=== PATIENT | male | born 1980 | race Caucasian/White ===

== ENCOUNTER 2020-07-19 13:12 | Emergency (ER) | payer SELFPAY ==
[~2020-07-19] VITALS: Ht 182.9 cm; Wt 63.9 kg
--- NOTE | 2020-07-19 14:31 | RAD ---
3 view study of the left wrist Clinical indications: Fall with left wrist pain FINDINGS: There is a nondisplaced transverse fracture of the waist of the scaphoid bone. Alignment is normal. No dislocation is seen. No lytic process is evident. IMPRESSION: Fracture of the scaphoid bone. Electronically signed by: Martin Andrade MD (07/19/2020 2:28 PM) [id number]
--- NOTE | 2020-07-19 14:34 | PHYS DOC ---
Past Medical History Past Medical History: Other Additional Past Medical Histor: SPNTANEOUS PNEUMO X3 LEFT SIDE, L ELBOW DISLOCATION, L WRIST FX Past Surgical History: Other Additional Past Surgical Histo: PNEUMO, ART BIPASS OF L ELBOW Smoking Status: Current Every Day Smoker Additional Information: VAPS, AND CIG Alcohol Use: Rarely General Adult EDM: Chief Complaint: WRIST PAIN HPI: HPI: Patient is a 39 year old male who had a FOOSH injury 3 weeks ago in [facility], patient was diagnosed with a scaphoid fracture. Patient was to have surgery but had some issues due to insurance status. Patient states he has increasing pain in the scaphoid radiating to the ulnar side of the wrist as well. Pain is worse with range of motion. Pain is throbbing in nature and mo derate in severity at rest and severe with range of motion. Review of Systems: Review of Systems: Constitutional: Denies fever or chills. [] Eyes: Denies change in visual acuity. [] HENT: Denies nasal congestion or sore throat. [] Respiratory: Denies cough or shortness of breath. [] Cardiovascular: Denies chest pain or edema. [] GI: Denies abdominal pain, nausea, vomiting, bloody stools or diarrhea. [] : Denies dysuria. [] Musculoskeletal: Denies back pain but has left wrist pain Integument: Denies rash. [] Neurologic: Denies headache, focal weakness or sensory changes. [] Endocrine: Denies polyuria or polydipsia. [] Lymphatic: Denies swollen glands. [] Psychiatric: Denies depression or anxiety. [] Heart Score: Risk Factors: Risk Factors: DM, Current or recent (<one month) smoker, HTN, HLP, family history of CAD, obesity. Risk Scores: Score 0 - 3: 2.5% MACE over next 6 weeks - Discharge Home Score 4 - 6: 20.3% MACE over next 6 weeks - Admit for Clinical Observation Score 7 - 10: 72.7% MACE over next 6 weeks - Early Invasive Strategies Allergies: Allergies: Allergies Coded Allergies Type Severity Reaction Last Updated Verified hydrocodone Allergy Intermediate 07/19/20 Yes tramadol Allergy Intermediate 07/19/20 Yes Physical Exam: PE: Constitutional: Well developed, well nourished, no acute distress, non-toxic appearance. [] HENT: Normocephalic, atraumatic, bilateral external ears normal, no trismus nose normal. [] Eyes: PERRLA, EOMI, conjunctiva normal, no discharge. [] Neck: Normal range of motion, no tenderness, supple, no stridor. [] Cardiovascular:Heart rate regular rhythm, peripheral pulses intact, cap refill brisk Lungs & Thorax: Bilateral breath sounds clear, no respiratory distress Abdomen: Nontender no distention Skin: Warm, dry, no erythema, no rash. [] Back: No tenderness, no CVA tenderness. [] Extremities: Mild swelling to left wrist with tenderness on the left snuffbox area neurovascular intact distally Neurologic: Alert and oriented X 3, normal motor function, normal sensory function, no focal deficits noted. [] Psychologic: Affect normal, judgement normal, mood normal. [] Current Patient Data: Vital Signs: Vital Signs Date Time Temp Pulse Resp B/P (MAP) Pulse Ox O2 Delivery O2 Flow Rate FiO2 07/19/20 13:30 96.8 72 14 104/66 (79) 97 Room Air 96.8 EKG: EKG: [] Radiology/Procedures: Radiology/Procedures: [][facility] [address] [place] [address] IMAGING REPORT Signed PATIENT: HANG DUBOSE ACCOUNT: [id number] : 1980 LOCATION: ER AGE: 39 SEX: M EXAM STATUS: REG ER ORD. PHYSICIAN: NENA LAMAS MD REASON: fall PROCEDURE: WRIST 3V LEFT 3 view study of the left wrist Clinical indications: Fall with left wrist pain FINDINGS: There is a nondisplaced transverse fracture of the waist of the scaphoid bone. Alignment is normal. No dislocation is seen. No lytic process is evident. IMPRESSION: Fracture of the scaphoid bone. Electronically signed by: Sacha Andrade MD (07/19/2020 2:28 PM) [id number] DICTATED and SIGNED BY: SACHA ANDRADE MD DATE: 07/19/20 1428 Ortho-Glass left thumb spica applied by tech, examined by me after application, neurovascular intact, cap refill less than 2 seconds. Course & Med Decision Making: Course & Med Decision Making Pertinent Labs and Imaging studies reviewed. (See chart for details) [] 39-year-old male with a left scaphoid fracture that happened about a month ago. A thumb spica has been ordered. Patient will need to follow-up with orthopedist as an outpatient. Case management/social work will be consulted to help facilitate this. Kamla Disclaimer: Dragalyssa Disclaimer: This electronic medical record was generated, in whole or in part, using a voice recognition dictation system. Departure Departure Impression: Primary Impression: Fracture of scaphoid of left wrist Disposition: HOME, SELF-CARE Condition: STABLE Referrals: NO PCP (PCP) DIOGENES REEVES II, MD 2-3 days Patient Instructions: Cast or Splint Care, Scaphoid Fracture, Wrist Additional Instructions: EMERGENCY DEPARTMENT GENERAL DISCHARGE INSTRUCTIONS THANK YOU for coming to [facility] Emergency Department (ED) today and trusting us with your care. We trust that you had a positive experience in our Emergency Department. If you wish to speak to the department Management you can contact the biology department chair at . YOUR FOLLOW UP INSTRUCTIONS ARE FOLLOWS: Do you have a private doctor? If you do not have a private doctor, please ask for a resource list of physicians or clinics that may be able to assist you with follow up care. The Emergency Physician has interpreted your x-rays. The X-ray specialist will also review them. If there is a change in the findings you will be notified in 48 hours when at all possible. A lab test or lab culture may have been done, your results will be reviewed and you will be notified if you need a change in treatment. ADDITIONAL INSTRUCTIONS AND INFORMATION Your care today has been supervised by a physician who is specially trained in emergency care. Many problems require more than one evaluation for a complete diagnosis and treatment. We recommend that you schedule your follow up appointment as recommended to ensure complete treatment of your illness or injury. If you are unable to obtain follow up care and continue to have a problem, or if your condition worsens we recommend that you return to the ED. We are not able to safely determine your condition over the phone nor are we able to give sound medical advice over the phone. For these safety reasons, if you call for medical advice we will ask you to come to the ED for further evaluation If you have any questions regarding these discharge instructions please call the ED at . SAFETY INFORMATION In the interest of safety, wellness, and injury prevention; we encourage you to wear your seatbelt, if you smoke; quit smoking, and we encourage your family to use protective helmet for bicycling and other sporting events that present an increased risk for head injury. IF YOUR SYMPTOMS WORSEN OR NEW SYMPTOMS DEVELOP, OR YOU HAVE CONCERNS ABOUT YOUR CONDITION; OR IF YOUR CONDITION WORSENS WHILE YOU ARE WAITING FOR YOUR FOLLOW UP APPOINTMENT; EITHER CONTACT YOUR PRIMARY CARE DOCTOR, THE PHYSICIAN WHOSE NAME AND NUMBER YOU WERE GIVEN, OR RETURN TO THE ED IMMEDIATELY. Scripts Acetaminophen With Codeine (ACETAMINOPHEN-COD #3 TABLET) 1 Each Tablet 1 TAB PO PRN Q6HRS PRN for PAIN, #12 TAB Prov: NENA LAMAS MD 07/19/20 Justicifation of Admission Dx: Justifications for Admission: Justification of Admission Dx: N/A NENA LAMAS MD Jul 19, 2020 14:34
[2020-07-19] MEDS ORDERED: ACET1TAB33 PO (15:11)
[2020-07-19 15:57] VITALS: BP 119/63
== END 2020-07-19 16:53 | disposition home or self-care (01) ==
LOC: ER 13:12
DX: S62.002A Unspecified fracture of navicular [scaphoid] bone of left wrist, initial encounter for closed fracture (principal); R60.0 Localized edema; F17.200 Nicotine dependence, unspecified, uncomplicated; Z98.890 Other specified postprocedural states; Z88.5 Allergy status to narcotic agent; Z88.8 Allergy status to other drugs, medicaments and biological substances; X58.XXXA Exposure to other specified factors, initial encounter; Y93.89 Activity, other specified; Y92.89 Other specified places as the place of occurrence of the external cause; Y99.8 Other external cause status
CPT/HCPCS: 29125; 73110; 99283

== ENCOUNTER 2020-07-25 04:59 | Emergency (ER) | payer SELFPAY ==
[~2020-07-25] VITALS: Ht 182.9 cm; Wt 64.1 kg
[~2020-07-25 04:59] MED LIST: ACET1TAB33 PO
--- NOTE | 2020-07-25 05:54 | PHYS DOC ---
Past Medical History Past Medical History: Kidney Stone, Other Additional Past Medical Histor: SPONTANEOUS PNEUMO X3 LEFT SIDE from BLEBs, L ELBOW DISLOCATION, L WRIST FX (JANETTE BUNDY DO) Past Surgical History: Other Additional Past Surgical Histo: PNEUMO, ART BIPASS OF L ELBOW (JANETTE BUNDY DO) Smoking Status: Current Every Day Smoker Alcohol Use: None Drug Use: None (JANETTE BUNDY DO) General Adult EDM: Chief Complaint: ABDOMINAL PAIN HPI: HPI: Patient is a 39 year old M who presents with LLQ pain that radiates to the groin that began yesterday after a "bowel movement". He states the pain is sharp, 10/10 and comes and goes. He states that nothing improves or worsens the pain. He denies dysuria and blood in his urine. He states that he is nauseous, but denies vomiting. He denies swelling in his testicles and penile discharge. Denies trauma. Denies fever/chills. (JANETTE BUNDY DO) Review of Systems: Review of Systems: Constitutional: Denies fever or chills Eyes: Denies redness or eye pain HENT: Denies nasal congestion or sore throat Respiratory: Denies cough or shortness of breath Cardiovascular: Denies chest pain or palpitations GI: Reports abdominal pain and nausea and vomiting. : Denies dysuria or hematuria; reports testicular pain Musculoskeletal: Denies back pain or joint pain Integument: Denies rash or skin lesions Neurologic: Denies headache, focal weakness or sensory changes Complete systems were reviewed and found to be within normal limits, except as documented in this note. (JANETTE BUNDY DO) Current Medications: Current Medications Medications (Trade) Dose Ordered Sig/Ria Start Time Stop Time Status Last Admin Dose Admin Ketorolac Tromethamine (Toradol 15mg Vial) 15 mg 1X ONCE 07/25/20 06:00 07/25/20 06:01 Metoclopramide HCl (Reglan Vial) 10 mg 1X ONCE 07/25/20 06:00 07/25/20 06:01 Sodium Chloride 1,000 ml @ 1,000 mls/hr 1X ONCE 07/25/20 06:00 07/25/20 06:59 (JANETTE BUNDY DO) Allergies: Allergies: Allergies Coded Allergies Type Severity Reaction Last Updated Verified hydrocodone Allergy Intermediate 07/19/20 Yes tramadol Allergy Intermediate 07/19/20 Yes (JANETTE BUNDY DO) Physical Exam: PE: Constitutional: Well developed, well nourished. HENT: Normocephalic, atraumatic Eyes: Conjunctiva normal, no discharge Neck: Normal range of motion, no tenderness, supple Lungs & Thorax: No respiratory distress, equal chest rise and fall Abdomen: Soft, mildly tender to palpation in LLQ and groin. : External genitalia normal, cremasteric reflex normal, no testicular swelling or pain on palpation, no penile discharge noted. Skin: Warm, dry, no erythema, no rash Back: No tenderness, no CVA tenderness Extremities: ROM intact, no edema Neurologic: Alert and oriented X 3, normal motor function, normal sensory function, no focal deficits noted Psychologic: Affect normal, judgment normal (JANETTE BUNDY DO) Current Patient Data: Vital Signs: Vital Signs Date Time Temp Pulse Resp B/P (MAP) Pulse Ox O2 Delivery O2 Flow Rate FiO2 07/25/20 05:26 97.4 84 22 127/80 (96) 100 Room Air 97.4 (JANETTE BUNDY DO) Labs: Laboratory Tests Test 07/25/20 05:03 07/25/20 05:15 Urine Collection Type Unknown Urine Color Yellow Urine Clarity Clear Urine pH 5.5 Urine Specific [place] 1.025 Urine Protein Negative mg/dL Urine Glucose (UA) Negative mg/dL Urine Ketones (Stick) Negative mg/dL Urine Blood Large Urine Nitrite Negative Urine Bilirubin Negative Urine Urobilinogen Dipstick 0.2 mg/dL Urine Leukocyte Esterase Negative Urine RBC 11-20 /HPF Urine WBC 1-4 /HPF Urine Squamous Epithelial Cells Few /LPF Urine Bacteria 0 /HPF Urine Mucus Marked /LPF White Blood Count 12.9 x10^3/uL Red Blood Count 5.17 x10^6/uL Hemoglobin 16.3 g/dL Hematocrit 47.7 % Mean Corpuscular Volume 92 fL Mean Corpuscular Hemoglobin 32 pg Mean Corpuscular Hemoglobin Concent 34 g/dL Red Cell Distribution Width 14.2 % Platelet Count 209 x10^3/uL Neutrophils (%) (Auto) 41 % Lymphocytes (%) (Auto) 47 % Monocytes (%) (Auto) 10 % Eosinophils (%) (Auto) 2 % Basophils (%) (Auto) 1 % Neutrophils # (Auto) 5.2 x10^3/uL Lymphocytes # (Auto) 6.1 x10^3/uL Monocytes # (Auto) 1.2 x10^3/uL Eosinophils # (Auto) 0.2 x10^3/uL Basophils # (Auto) 0.1 x10^3/uL Sodium Level 142 mmol/L Potassium Level 3.6 mmol/L Chloride Level 106 mmol/L Carbon Dioxide Level 27 mmol/L Anion Gap 9 Blood Urea Nitrogen 16 mg/dL Creatinine 1.1 mg/dL Estimated GFR (Cockcroft-Gault) 74.1 BUN/Creatinine Ratio 15 Glucose Level 100 mg/dL Calcium Level 9.5 mg/dL Magnesium Level 2.0 mg/dL Total Bilirubin 0.4 mg/dL Aspartate Amino Transf (AST/SGOT) 18 U/L Alanine Aminotransferase (ALT/SGPT) 26 U/L Alkaline Phosphatase 105 U/L Total Protein 7.4 g/dL Albumin 4.1 g/dL Albumin/Globulin Ratio 1.2 Lipase 224 U/L Current Medications Medications (Trade) Dose Ordered Sig/Ria Route PRN Reason Start Time Stop Time Status Last Admin Dose Admin Sodium Chloride 1,000 ml @ 1,000 mls/hr 1X ONCE IV 07/25/20 06:00 07/25/20 06:59 07/25/20 05:52 Ketorolac Tromethamine (Toradol 15mg Vial) 15 mg 1X ONCE IVP 07/25/20 06:00 07/25/20 06:02 DC 07/25/20 05:53 Metoclopramide HCl (Reglan Vial) 10 mg 1X ONCE IVP 07/25/20 06:00 07/25/20 06:02 DC 07/25/20 05:52 Vital Signs: Vital Signs Date Time Temp Pulse Resp B/P (MAP) Pulse Ox O2 Delivery O2 Flow Rate FiO2 07/25/20 05:26 97.4 84 22 127/80 (96) 100 Room Air 97.4 (NENA LAMAS MD) EKG: EKG: [] (JANETTE BUNDY DO) Radiology/Procedures: Radiology/Procedures: [] (JANETTE BUNDY DO) Radiology/Procedures: [facility] [address] [place] [address] IMAGING REPORT Signed PATIENT: HANG DUBOSE ACCOUNT: [id number] : 1980 LOCATION: ER AGE: 39 SEX: M EXAM STATUS: REG ER ORD. PHYSICIAN: JANETTE BUNDY DO REASON: left flank pain eval for ureteral calculi PROCEDURE: CT ABDOMEN PELVIS WO CONTRAST Examination: CT of the abdomen pelvis without contrast HISTORY: History of left flank pain COMPARISON: None available Technique: Axial CT images of the abdomen pelvis were performed without contrast. Coronal and sagittal reformats are performed Exposure: One or more of the following individualized dose reduction techniques were utilized for this examination: 1. Automated exposure control 2. Adjustment of the mA and/or kV according to patient size 3. Use of iterative reconstruction technique Findings: The bibasilar lungs are clear. No evidence of free air identified in the abdomen. The evaluation of the solid organs is limited due to lack of IV contrast. The evaluation of bowel is limited due to lack of oral contrast. The visualized noncontrasted liver, spleen, adrenals grossly appears unremarkable. The gallbladder is mildly distended. The stomach is mildly distended with visualized pancreas grossly appears unremarkable. The small bowel is nondilated. The appendix is normal. Mild left-sided hydronephrosis and hydroureter identified with 4 mm calculus identified in the left uterovesical junction. Urinary bladder is mildly distended. No evidence of lytic bony destructive lesion. IMPRESSION: 1. 4 mm calculus identified at the left ureterovesical junction causing mild left-sided hydronephrosis and hydroureter. Electronically signed by: Aris Dixon MD (07/25/2020 6:16 AM) [id number] DICTATED and SIGNED BY: ARIS DIXON MD DATE: 07/25/20 0616 (NENA LAMAS MD) Course & Med Decision Making: Course & Med Decision Making Pertinent Labs and Imaging studies reviewed. (See chart for details) Patient presents with report of left lower quadrant abdominal pain with radiation to left groin/testicle. Patient with associated nausea and vomiting. Reports history of kidney stones. External genitalia normal without testicular swelling or pain on palpation. Labs obtained and pending. CT abdomen/pelvis also pending. IV fluid hydration and symptomatic treatment provided. Sign out given to Dr. Lamas for further evaluation and final disposition. Discussed current findings and plan with patient and fianc, who acknowledge understanding and agreement. (JANETTE BUNDY DO) Course & Med Decision Making 39-year-old male presents with left flank pain. Patient signed out to me by Dr. Bundy. Patient with a 4 mm distal left ureteral stone. On my reassessment at 6:30 AM patient is resting comfortably denies pain. Patient no respiratory distress. Patient stable for discharge, return precautions given. (NENA LAMAS MD) Dragon Disclaimer: Dragon Disclaimer: This electronic medical record was generated, in whole or in part, using a voice recognition dictation system. (JANETTE BUNDY DO) Departure Departure Impression: Primary Impression: Left ureteral stone Additional Impression: Abdominal pain Qualified Codes: R10.32 - Left lower quadrant pain Disposition: HOME, SELF-CARE Condition: STABLE Referrals: NO PCP (PCP) urology Patient Instructions: Kidney Stones Additional Instructions: EMERGENCY DEPARTMENT GENERAL DISCHARGE INSTRUCTIONS THANK YOU for coming to [facility] Emergency Department (ED) today and trusting us with your care. We trust that you had a positive experience in our Emergency Department. If you wish to speak to the department Management you can contact the emergency department technician at . YOUR FOLLOW UP INSTRUCTIONS ARE FOLLOWS: Do you have a private doctor? If you do not have a private doctor, please ask for a resource list of physicians or clinics that may be able to assist you with follow up care. The Emergency Physician has interpreted your x-rays. The X-ray specialist will also review them. If there is a change in the findings you will be notified in 48 hours when at all possible. A lab test or lab culture may have been done, your results will be reviewed and you will be notified if you need a change in treatment. ADDITIONAL INSTRUCTIONS AND INFORMATION Your care today has been supervised by a physician who is specially trained in emergency care. Many problems require more than one evaluation for a complete diagnosis a nd treatment. We recommend that you schedule your follow up appointment as recommended to ensure complete treatment of your illness or injury. If you are unable to obtain follow up care and continue to have a problem, or if your condition worsens we recommend that you return to the ED. We are not able to safely determine your condition over the phone nor are we able to give sound medical advice over the phone. For these safety reasons, if you call for medical advice we will ask you to come to the ED for further evaluation If you have any questions regarding these discharge instructions please call the ED at . SAFETY INFORMATION In the interest of safety, wellness, and injury prevention; we encourage you to wear your seatbelt, if you smoke; quit smoking, and we encourage your family to use protective helmet for bicycling and other sporting events that present an increased risk for head injury. IF YOUR SYMPTOMS WORSEN OR NEW SYMPTOMS DEVELOP, OR YOU HAVE CONCERNS ABOUT YOUR CONDITION; OR IF YOUR CONDITION WORSENS WHILE YOU ARE WAITING FOR YOUR FOLLOW UP APPOINTMENT; EITHER CONTACT YOUR PRIMARY CARE DOCTOR, THE PHYSICIAN WHOSE NAME AND NUMBER YOU WERE GIVEN, OR RETURN TO THE ED IMMEDIATELY. Scripts Tamsulosin Hcl (FLOMAX) 0.4 Mg Cap.er.24h 0.4 MG PO DAILY for 7 Days, #7 TAB Prov: NENA LAMAS MD 07/25/20 Ondansetron Hcl (ZOFRAN) 4 Mg Tablet 1 TAB PO Q6HRS PRN for NAUSEA, #12 TAB Prov: NENA LAMAS MD 07/25/20 Oxycodone/Apap 5-325 (PERCOCET 5-325 MG TABLET ) 1 Each Tablet 1-2 EACH PO Q6-8HRS PRN for SEVERE PAIN 7-10, #12 TAB pain Prov: NENA LAMAS MD 07/25/20 Ibuprofen (IBUPROFEN) 600 Mg Tablet 600 MG PO Q8HRS PRN for PAIN, #20 TAB take with food or milk Prov: NENA LAMAS MD 07/25/20 Justicifation of Admission Dx: Justifications for Admission: Justification of Admission Dx: N/A (JANETTE BUNDY DO) Justification of Admission Dx: N/A (NENA LAMAS MD) JANETTE BUNDY DO Jul 25, 2020 05:54 NENA LAMAS MD Jul 25, 2020 06:34
[2020-07-25 05:56] LABS: BASO # 0.1 x10^3/uL (0.0-0.2); BASO % 1 % (0-3); EOS # 0.2 x10^3/uL (0.0-0.7); EOS % 2 % (0-3); HEMATOCRIT 47.7 % (39.0-53.0); HEMOGLOBIN 16.3 g/dL (13.0-17.5); LYMPH # 6.1 x10^3/uL (1.0-4.8); LYMPH % 47 % (24-48); MEAN CORPUSCULAR HEMOGLOBIN 32 pg (25-35); MEAN CORPUSCULAR HGB CONC 34 g/dL (31-37); MEAN CORPUSCULAR VOLUME 92 fL (79-100); MONO # 1.2 x10^3/uL (0.0-1.1); MONO % 10 % (0-9); NEUT # 5.2 x10^3/uL (1.8-7.7); NEUT % 41 % (31-73); PLATELET COUNT 209 x10^3/uL (140-400); RED BLOOD COUNT 5.17 x10^6/uL (4.30-5.70); RED CELL DISTRIBUTION WIDTH 14.2 % (11.5-14.5); WHITE BLOOD COUNT 12.9 x10^3/uL (4.0-11.0)
[2020-07-25 05:58] LABS: BILIRUBIN,URINE NEGATIVE (NEG); CLARITY,URINE CLEAR; COLOR,URINE YELLOW; NITRITE,URINE NEGATIVE (NEG); PH,URINE 5.5 (<5.0-8.0); PROTEIN,URINE NEGATIVE (NEG-TRACE); UROBILINOGEN,URINE 0.2 mg/dL (0.2 mg/dL)
[2020-07-25 06:00] VITALS: BP 112/72
[2020-07-25] MEDS ORDERED: METOCLOPRAMIDE HCL 10 MG/2 ML VIAL. IVP ONE (06:00)
[2020-07-25] MEDS ORDERED: KETOROLAC 15 MG/ML VIAL. IVP ONE (06:00)
[2020-07-25] MEDS ORDERED: IV NORMAL SALINE 1000ML BAG 1,000 ML IV ONE (06:00)
[2020-07-25 06:07] LABS: CALCIUM 9.5 mg/dL (8.5-10.1); CREATININE 1.1 mg/dL (0.7-1.3); GFR 74.1; POTASSIUM 3.6 mmol/L (3.5-5.1)
[2020-07-25 06:09] LABS: BACTERIA,URINE 0 /HPF (0-FEW); SQUAMOUS EPITHELIAL CELL,UR FEW /LPF
[2020-07-25 06:12] LABS: ALBUMIN 4.1 g/dL (3.4-5.0); ALBUMIN/GLOBULIN RATIO 1.2 (1.0-1.7); TOTAL BILIRUBIN 0.4 mg/dL (0.2-1.0); TOTAL PROTEIN 7.4 g/dL (6.4-8.2)
--- NOTE | 2020-07-25 06:19 | RAD ---
Examination: CT of the abdomen pelvis without contrast HISTORY: History of left flank pain COMPARISON: None available Technique: Axial CT images of the abdomen pelvis were performed without contrast. Coronal and sagittal reformats are performed Exposure: One or more of the following individualized dose reduction techniques were utilized for this examination: 1. Automated exposure control 2. Adjustment of the mA and/or kV according to patient size 3. Use of iterative reconstruction technique Findings: The bibasilar lungs are clear. No evidence of free air identified in the abdomen. The evaluation of the solid organs is limited due to lack of IV contrast. The evaluation of bowel is limited due to lack of oral contrast. The visualized noncontrasted liver, spleen, adrenals grossly appears unremarkable. The gallbladder is mildly distended. The stomach is mildly distended with visualized pancreas grossly appears unremarkable. The small bowel is nondilated. The appendix is normal. Mild left-sided hydronephrosis and hydroureter identified with 4 mm calculus identified in the left uterovesical junction. Urinary bladder is mildly distended. No evidence of lytic bony destructive lesion. IMPRESSION: 1. 4 mm calculus identified at the left ureterovesical junction causing mild left-sided hydronephrosis and hydroureter. Electronically signed by: Aris Dixon MD (07/25/2020 6:16 AM) [id number]
[2020-07-25] MEDS ORDERED: TAMS0.4C97 PO (06:34)
[2020-07-25] MEDS ORDERED: OXYC1TAB15 PO (06:34)
[2020-07-25] MEDS ORDERED: IBUP-1007 PO (06:34)
[2020-07-25] MEDS ORDERED: ONDA4TAB7 PO (06:34)
== END 2020-07-25 06:52 | disposition home or self-care (01) ==
LOC: ER 04:59
DX: N13.2 Hydronephrosis with renal and ureteral calculous obstruction (principal); R10.32 Left lower quadrant pain; R11.2 Nausea with vomiting, unspecified; N50.819 Testicular pain, unspecified; F17.200 Nicotine dependence, unspecified, uncomplicated; Z87.442 Personal history of urinary calculi; Z98.890 Other specified postprocedural states; Z88.5 Allergy status to narcotic agent; Z88.8 Allergy status to other drugs, medicaments and biological substances
CPT/HCPCS: 36415; 74176; 80053; 81001; 83690; 83735; 85025; 96361; 96374; 96375; 99284; J1885; J2765; J7030

== ENCOUNTER 2020-07-30 13:52 | Emergency (ER) | payer SELFPAY ==
[~2020-07-30] VITALS: Ht 182.9 cm; Wt 65.0 kg
[~2020-07-30 13:52] MED LIST changes: +IBUP-1007 PO; +ONDA4TAB7 PO; +OXYC1TAB15 PO; +TAMS0.4C97 PO
[2020-07-30] MEDS ORDERED: ONDANSETRON ODT 4 MG TAB.RAPDIS. PO ONE (14:45)
[2020-07-30] MEDS ORDERED: HYDROcodone/APAP 5/325MG 1 TAB TABLET PO ONE (14:45)
--- NOTE | 2020-07-30 14:46 | PHYS DOC ---
Past Medical History Past Medical History: Kidney Stone, Other Additional Past Medical Histor: SPONTANEOUS PNEUMO X3 LEFT SIDE from BLEBs, L ELBOW DISLOCATION, L WRIST FX Past Surgical History: Other Additional Past Surgical Histo: PNEUMO, ART BIPASS OF L ELBOW Smoking Status: Current Every Day Smoker Alcohol Use: None Drug Use: None General Adult EDM: Chief Complaint: FLANK PAIN HPI: HPI: Patient is a 39-year-old male who presents with chief complaint of left flank and left lower quadrant abdominal pain. Patient states 5 days ago he was diagnosed with kidney stone on the left. He does note some nausea without vomiting today. He states he has run out of his home oxycodone. States he does not think that he has passed the stone. States that his pain had improved after leaving the emergency department on his initial visit but it returned today. States it is difficult to find a position of comfort. Denies testicle pain. Does note some slight burning with urination. Denies any obvious hematuria. Denies syncope. Has not followed up with a urologist. No other complaints. Review of Systems: Review of Systems: Constitutional: Denies fever or chills. [] Eyes: Denies change in visual acuity. [] HENT: Denies nasal congestion or sore throat. [] Respiratory: Denies cough or shortness of breath. [] Cardiovascular: Denies chest pain or edema. [] GI: Positive for flank pain : Positive for dysuria Musculoskeletal: Denies back pain or joint pain. [] Integument: Denies rash. [] Neurologic: Denies headache, focal weakness or sensory changes. [] Endocrine: Denies polyuria or polydipsia. [] Lymphatic: Denies swollen glands. [] Psychiatric: Denies depression or anxiety. [] Heart Score: Risk Factors: Risk Factors: DM, Current or recent (<one month) smoker, HTN, HLP, family history of CAD, obesity. Risk Scores: Score 0 - 3: 2.5% MACE over next 6 weeks - Discharge Home Score 4 - 6: 20.3% MACE over next 6 weeks - Admit for Clinical Observation Score 7 - 10: 72.7% MACE over next 6 weeks - Early Invasive Strategies Current Medications: Current Medications Medications (Trade) Dose Ordered Sig/Ria Start Time Stop Time Status Last Admin Dose Admin Acetaminophen/ Hydrocodone Bitart (Lortab 5/325) 2 tab 1X ONCE 07/30/20 14:45 07/30/20 14:46 Ondansetron HCl (Zofran Odt) 4 mg 1X ONCE 07/30/20 14:45 07/30/20 14:46 UNV Allergies: Allergies: Allergies Coded Allergies Type Severity Reaction Last Updated Verified hydrocodone Allergy Intermediate 07/19/20 Yes tramadol Allergy Intermediate 07/19/20 Yes Physical Exam: PE: Constitutional: Well developed, well nourished, no acute distress, non-toxic appearance. Patient appears comfortable. [] HENT: Normocephalic, atraumatic, bilateral external ears normal, oropharynx moist, no oral exudates, nose normal. [] Eyes: PERRLA, EOMI, conjunctiva normal, no discharge. [] Neck: Normal range of motion, no tenderness, supple, no stridor. [] Cardiovascular:Heart rate regular rhythm, no murmur [] Lungs & Thorax: Bilateral breath sounds clear to auscultation [] Abdomen: soft, nontender, nonacute abdomen. No involuntary guarding or rigidity noted. No acute peritonitis. ; circumcised. No testicular pain or tenderness to palpation. No overlying skin changes or masses noted. Skin: Warm, dry, no erythema, no rash. [] Back: No tenderness, no CVA tenderness. [] Extremities: No tenderness, no cyanosis, no clubbing, ROM intact, no edema. [] Neurologic: Alert and oriented X 3, normal motor function, normal sensory function, no focal deficits noted. [] Psychologic: Affect normal, judgement normal, mood normal. [] Current Patient Data: Labs: Laboratory Tests Test 07/30/20 14:39 07/30/20 15:11 Urine Collection Type Unknown Urine Color Dk yellow Urine Clarity Clear Urine pH 5.5 Urine Specific [place] 1.020 Urine Protein Negative mg/dL Urine Glucose (UA) Negative mg/dL Urine Ketones (Stick) Trace mg/dL Urine Blood Trace Urine Nitrite Negative Urine Bilirubin Small Urine Urobilinogen Dipstick 1.0 mg/dL Urine Leukocyte Esterase Trace Urine RBC 6-10 /HPF Urine WBC Occ /HPF Urine Squamous Epithelial Cells Few /LPF Urine Bacteria 0 /HPF Urine Mucus Marked /LPF White Blood Count 15.6 x10^3/uL Red Blood Count 4.97 x10^6/uL Hemoglobin 15.5 g/dL Hematocrit 45.9 % Mean Corpuscular Volume 92 fL Mean Corpuscular Hemoglobin 31 pg Mean Corpuscular Hemoglobin Concent 34 g/dL Red Cell Distribution Width 14.0 % Platelet Count 197 x10^3/uL Neutrophils (%) (Auto) 72 % Lymphocytes (%) (Auto) 17 % Monocytes (%) (Auto) 10 % Eosinophils (%) (Auto) 1 % Basophils (%) (Auto) 1 % Neutrophils # (Auto) 11.2 x10^3/uL Lymphocytes # (Auto) 2.6 x10^3/uL Monocytes # (Auto) 1.6 x10^3/uL Eosinophils # (Auto) 0.1 x10^3/uL Basophils # (Auto) 0.1 x10^3/uL Sodium Level 139 mmol/L Potassium Level 3.8 mmol/L Chloride Level 106 mmol/L Carbon Dioxide Level 25 mmol/L Anion Gap 8 Blood Urea Nitrogen 16 mg/dL Creatinine 1.2 mg/dL Estimated GFR (Cockcroft-Gault) 67.1 Glucose Level 113 mg/dL Calcium Level 9.4 mg/dL Current Medications Medications (Trade) Dose Ordered Sig/Ria Route PRN Reason Start Time Stop Time Status Last Admin Dose Admin Acetaminophen/ Hydrocodone Bitart (Lortab 5/325) 2 tab 1X ONCE PO 07/30/20 14:45 07/30/20 14:46 DC 07/30/20 15:18 Ondansetron HCl (Zofran Odt) 4 mg 1X ONCE PO 07/30/20 14:45 07/30/20 14:46 DC 07/30/20 15:17 Vital Signs: Vital Signs Date Time Temp Pulse Resp B/P (MAP) Pulse Ox O2 Delivery O2 Flow Rate FiO2 07/30/20 15:18 18 99 Room Air 07/30/20 14:45 98.2 88 18 106/59 (75) 100 Room Air 98.2 EKG: EKG: [] Radiology/Procedures: Radiology/Procedures: [][facility] [address] [place], [place] [id number] IMAGING REPORT Signed PATIENT: HANG DUBOSE ACCOUNT: [id number] : 1980 LOCATION: ER AGE: 39 SEX: M EXAM STATUS: PRE ER ORD. PHYSICIAN: WILBERTO MCKENZIE DO REASON: L flank pain PROCEDURE: CT ABDOMEN PELVIS WO CONTRAST CT abdomen and pelvis without contrast. HISTORY: Left flank pain CT scan the abdomen pelvis was done without contrast. Lung bases are clear. There is no effusion. A liver lesion is not identified. Spleen and adrenal glands are normal. There is no definite pancreatic abnormality. There is a calcification in the gallbladder, gallstones possible. There is no mass or hydronephrosis or calculus in the right kidney. There is hydronephrosis of the left kidney and left ureter. There is a 3 mm calculus at the left ureterovesical junction. Bladder is unremarkable. Bowel pattern is normal. Appendix is normal. There is no adenopathy. IMPRESSION: 1. 3 mm calculus at the left ureterovesical junction with left hydronephrosis and hydroureter. 2. Possible gallstone. PQRS Compliance Statement: One or more of the following individualized dose reduction techniques were utilized for this examination: 1. Automated exposure control 2. Adjustment of the mA and/or kV according to patient size 3. Use of iterative reconstruction technique Electronically signed by: Travis Seals MD (07/30/2020 3:15 PM) [id number] DICTATED and SIGNED BY: TRAVIS SEALS MD DATE: 07/30/20 1515 Course & Med Decision Making: Course & Med Decision Making Pertinent Labs and Imaging studies reviewed. (See chart for details) [] Patient is a comfortable appearing 39-year-old male who presents with chief complaint of left flank pain. Per chart review 5 days ago he was diagnosed with a left-sided 4 mm kidney stone. Today's imaging reveals a retained ureteral stone. Mild hydronephrosis. Kidney function normal. Urine without evidence of infection. Patient's pain does appear well controlled in the emergency department. I do feel he is still appropriate for outpatient management. Based on the size of the stone the patient will most likely pass this spontaneously. he Was given referral to a urologist to follow-up with. He was instructed to follow-up with his primary care physician in the next 2 to 3 days. Return precautions discussed and understood. He was encouraged to use ibuprofen at home. Stable for discharge. Dragon Disclaimer: Dragon Disclaimer: This electronic medical record was generated, in whole or in part, using a voice recognition dictation system. Departure Departure Impression: Primary Impression: Ureterolithiasis Disposition: 01 HOME, SELF-CARE Condition: STABLE Referrals: NO PCP (PCP) Patient Instructions: Kidney Stones Additional Instructions: Dr. Travis Aburto [place] [address] [place] [address] [place] [phone] Scripts Ondansetron Hcl (ZOFRAN) 4 Mg Tablet 4 MG PO PRN TID PRN for NAUSEA, #9 nausea/vomiting Prov: WILBERTO MCKENZIE DO 07/30/20 Tamsulosin Hcl (FLOMAX) 0.4 Mg Cap.er.24h 1 CAP PO QHS, #7 CAP 11 Refills Prov: WILBERTO MCKENZIE DO 07/30/20 Ibuprofen (IBUPROFEN) 600 Mg Tablet 600 MG PO PRN Q6HRS PRN for PAIN, #20 TAB take with food or milk Prov: WILBERTO MCKENZIE DO 07/30/20 Justicifation of Admission Dx: Justifications for Admission: Justification of Admission Dx: N/A WILBERTO MCKENZIE DO Jul 30, 2020 14:46
[2020-07-30 15:01] LABS: BILIRUBIN,URINE SMALL (NEG); CLARITY,URINE CLEAR; NITRITE,URINE NEGATIVE (NEG); PH,URINE 5.5 (<5.0-8.0); PROTEIN,URINE NEGATIVE (NEG-TRACE)
[2020-07-30 15:07] LABS: COLOR,URINE DK YELLOW
[2020-07-30 15:08] LABS: SQUAMOUS EPITHELIAL CELL,UR FEW /LPF
[2020-07-30 15:09] LABS: BACTERIA,URINE 0 /HPF (0-FEW); WBC,URINE OCC /HPF (0-4)
--- NOTE | 2020-07-30 15:18 | RAD ---
CT abdomen and pelvis without contrast. HISTORY: Left flank pain CT scan the abdomen pelvis was done without contrast. Lung bases are clear. There is no effusion. A liver lesion is not identified. Spleen and adrenal glands are normal. There is no definite pancreatic abnormality. There is a calcification in the gallbladder, gallstones possible. There is no mass or hydronephrosis or calculus in the right kidney. There is hydronephrosis of the left kidney and left ureter. There is a 3 mm calculus at the left ureterovesical junction. Bladder is unremarkable. Bowel pattern is normal. Appendix is normal. There is no adenopathy. IMPRESSION: 1. 3 mm calculus at the left ureterovesical junction with left hydronephrosis and hydroureter. 2. Possible gallstone. PQRS Compliance Statement: One or more of the following individualized dose reduction techniques were utilized for this examination: 1. Automated exposure control 2. Adjustment of the mA and/or kV according to patient size 3. Use of iterative reconstruction technique Electronically signed by: Travis Seals MD (07/30/2020 3:15 PM) [id number]
[2020-07-30 15:21] LABS: BASO # 0.1 x10^3/uL (0.0-0.2); BASO % 1 % (0-3); EOS # 0.1 x10^3/uL (0.0-0.7); EOS % 1 % (0-3); HEMATOCRIT 45.9 % (39.0-53.0); HEMOGLOBIN 15.5 g/dL (13.0-17.5); LYMPH # 2.6 x10^3/uL (1.0-4.8); LYMPH % 17 % (24-48); MEAN CORPUSCULAR HEMOGLOBIN 31 pg (25-35); MEAN CORPUSCULAR HGB CONC 34 g/dL (31-37); MEAN CORPUSCULAR VOLUME 92 fL (79-100); MONO # 1.6 x10^3/uL (0.0-1.1); MONO % 10 % (0-9); NEUT # 11.2 x10^3/uL (1.8-7.7); NEUT % 72 % (31-73); PLATELET COUNT 197 x10^3/uL (140-400); RED BLOOD COUNT 4.97 x10^6/uL (4.30-5.70); WHITE BLOOD COUNT 15.6 x10^3/uL (4.0-11.0)
[2020-07-30 15:26] LABS: CALCIUM 9.4 mg/dL (8.5-10.1); CREATININE 1.2 mg/dL (0.7-1.3); GFR 67.1; POTASSIUM 3.8 mmol/L (3.5-5.1)
[2020-07-30 15:29] VITALS: BP 115/67
[2020-07-30] MEDS ORDERED: ONDA4TAB7 PO (15:37)
[2020-07-30] MEDS ORDERED: IBUP-1007 PO (15:37)
[2020-07-30] MEDS ORDERED: TAMS0.4C97 PO (15:37)
== END 2020-07-30 16:00 | disposition home or self-care (01) ==
LOC: ER 13:52
DX: N13.2 Hydronephrosis with renal and ureteral calculous obstruction (principal); R10.32 Left lower quadrant pain; R30.0 Dysuria; F17.200 Nicotine dependence, unspecified, uncomplicated; Z87.442 Personal history of urinary calculi; Z98.890 Other specified postprocedural states; Z88.5 Allergy status to narcotic agent; Z88.8 Allergy status to other drugs, medicaments and biological substances
CPT/HCPCS: 36415; 74176; 80048; 81001; 85025; 87086; 99284

== ENCOUNTER 2021-04-16 04:11 | Emergency (ER) | payer SELFPAY ==
[~2021-04-16] VITALS: Ht 180.3 cm; Wt 63.6 kg
[2021-04-16 04:45] LABS: BILIRUBIN,URINE NEGATIVE (NEG); CLARITY,URINE CLEAR; COLOR,URINE YELLOW; NITRITE,URINE NEGATIVE (NEG); PH,URINE 5.5 (<5.0-8.0); PROTEIN,URINE NEGATIVE (NEG-TRACE); UROBILINOGEN,URINE 0.2 mg/dL (0.2 mg/dL)
[2021-04-16 04:56] LABS: BACTERIA,URINE 0 /HPF (0-FEW); RBC,URINE OCC /HPF (0-2); WBC,URINE OCC /HPF (0-4)
[2021-04-16] MEDS ORDERED: CONTRAST GIVEN. MC PRN (05:00)
[2021-04-16] MEDS ORDERED: IOHEXOL 300 MG/ML 100ML VIAL. IV ONE (05:00)
[2021-04-16] MEDS ORDERED: FAMOTIDINE 20 MG/2 ML VIAL IVP ONE (05:00)
[2021-04-16] MEDS ORDERED: ONDANSETRON PF 4 MG/2 ML VIAL. IVP ONE (05:00)
[2021-04-16] MEDS ORDERED: fentaNYL PF VIAL 100 MCG/2 ML VIAL IVP ONE (05:00)
[2021-04-16] MEDS ORDERED: IOHEXOL 240 MG/ML 50ML VIAL. PO ONE (05:00)
[2021-04-16] MEDS ORDERED: IV NORMAL SALINE 1000ML BAG 1,000 ML IV ONE (05:00)
--- NOTE | 2021-04-16 05:01 | EKG ---
[facility] [address] [place] [address] Test Date: 2021-04-16 Test Time: 04:38:24 Pat Name: HANG DUBOSE Department: Room: Gender: M Blurb Writer: : 1980 Requested By: JANETTE BUNDY Order Number: [id number] Reading MD: Measurements Intervals Mascot Rate: 48 P: 42 SD: 148 QRS: 67 QRSD: 82 T: 52 QT: 430 QTc: 384 Interpretive Statements SINUS BRADYCARDIA INCOMPLETE RIGHT BUNDLE BRANCH BLOCK OTHERWISE NORMAL ECG RI6.02 No previous ECG available for comparison
[2021-04-16 05:03] LABS: BASO # 0.1 x10^3/uL (0.0-0.2); BASO % 1 % (0-3); EOS # 0.3 x10^3/uL (0.0-0.7); EOS % 2 % (0-3); HEMATOCRIT 43.7 % (39.0-53.0); HEMOGLOBIN 14.5 g/dL (13.0-17.5); LYMPH # 4.1 x10^3/uL (1.0-4.8); LYMPH % 34 % (24-48); MEAN CORPUSCULAR HEMOGLOBIN 31 pg (25-35); MEAN CORPUSCULAR HGB CONC 33 g/dL (31-37); MEAN CORPUSCULAR VOLUME 92 fL (79-100); MONO % 9 % (0-9); NEUT # 6.5 x10^3/uL (1.8-7.7); NEUT % 54 % (31-73); PLATELET COUNT 273 x10^3/uL (140-400); RED BLOOD COUNT 4.74 x10^6/uL (4.30-5.70); RED CELL DISTRIBUTION WIDTH 14.7 % (11.5-14.5); WHITE BLOOD COUNT 11.9 x10^3/uL (4.0-11.0)
--- NOTE | 2021-04-16 05:16 | PHYS DOC ---
Past Medical History Past Medical History: Kidney Stone, Other Additional Past Medical Histor: SPONTANEOUS PNEUMO X3 LEFT SIDE FROM BLEBS,L ELBOW DISLOCATION, L WRIST FX (JANETTE BUNDY DO) Past Surgical History: Other Additional Past Surgical Histo: PNEUMO, ART BYPASS OF L ELBOW (JANETTE BUNDY DO) Smoking Status: Former Smoker Alcohol Use: None Drug Use: Methamphetamine Social History Narrative: STATES HE HAS BEEN CLEAN FOR 5 DAYS (JANETTE BUNDY DO) General Adult EDM: Chief Complaint: MULTIPLE COMPLAINTS HPI: HPI: 40-year-old male presents with 2-day history of upper abdominal discomfort with radiation to his back. Reports associated nausea and vomiting. Denies diarrhea. Denies dysuria or hematuria. Denies flank pain. Patient reports no trauma. Denies fever or chills. Denies known sick contacts. Patient does report history of prior kidney stones but reports pain different than prior episodes. (JANETTE BUNDY DO) Review of Systems: Review of Systems: Constitutional: Denies fever or chills Eyes: Denies redness or eye pain HENT: Denies nasal congestion or sore throat Respiratory: Denies cough or shortness of breath Cardiovascular: Denies chest pain or palpitations GI: Reports abdominal pain, nausea, and vomiting : Denies dysuria or hematuria Musculoskeletal: Reports back pain; denies joint pain Integument: Denies rash or skin lesions Neurologic: Denies headache, focal weakness or sensory changes Complete systems were reviewed and found to be within normal limits, except as documented in this note. (JANETTE BUNDY DO) Heart Score: C/O Chest Pain: N/A (JANETTE BUNDY DO) C/O Chest Pain: No (HENRI GURROLA MD) Current Medications: Current Medications Medications (Trade) Dose Ordered Sig/Ria Start Time Stop Time Status Last Admin Dose Admin Famotidine (Pepcid Vial) 20 mg 1X ONCE 04/16/21 05:00 04/16/21 05:01 DC Fentanyl Citrate (Fentanyl 2ml Vial) 50 mcg 1X ONCE 04/16/21 05:00 04/16/21 05:01 DC Info (CONTRAST GIVEN -- Rx MONITORING) 1 each PRN DAILY PRN 04/16/21 05:00 04/18/21 04:59 Iohexol (Omnipaque 240 Mg/ml) 50 ml 1X ONCE 04/16/21 05:00 04/16/21 05:01 DC Iohexol (Omnipaque 300 Mg/ml) 75 ml 1X ONCE 04/16/21 05:00 04/16/21 05:01 DC Ondansetron HCl (Zofran) 4 mg 1X ONCE 04/16/21 05:00 04/16/21 05:01 DC Sodium Chloride 1,000 ml @ 1,000 mls/hr 1X ONCE 04/16/21 05:00 04/16/21 05:59 (JANETTE BUNDY DO) Allergies: Allergies: Allergies Coded Allergies Type Severity Reaction Last Updated Verified hydrocodone Allergy Intermediate 07/19/20 Yes tramadol Allergy Intermediate 07/19/20 Yes (JANETTE BUNDY DO) Physical Exam: PE: Constitutional: Well developed, well nourished, no acute distress, non-toxic appearance HENT: Normocephalic, atraumatic Eyes: Conjunctiva normal, no discharge Neck: Normal range of motion, supple Lungs & Thorax: No respiratory distress, equal chest rise and fall Abdomen: Soft, right upper quadrant and epigastric tenderness on palpation, voluntary guarding noted, no distention Skin: Warm, dry, no erythema, no rash, significant facial and neck tattoos Back: No tenderness, no CVA tenderness Extremities: No tenderness, ROM intact, no edema Neurologic: Alert and oriented X 3, normal motor function, normal sensory function, no focal deficits noted Psychologic: Affect normal, judgment normal (JANETTE BUNDY DO) Current Patient Data: Labs: Laboratory Tests Test 04/16/21 04:25 04/16/21 04:55 Urine Collection Type Unknown Urine Color Yellow Urine Clarity Clear Urine pH 5.5 (<5.0-8.0) Urine Specific [place] >=1.030 (1.000-1.030) Urine Protein Negative mg/dL (NEG-TRACE) Urine Glucose (UA) Negative mg/dL (NEG) Urine Ketones (Stick) Negative mg/dL (NEG) Urine Blood Negative (NEG) Urine Nitrite Negative (NEG) Urine Bilirubin Negative (NEG) Urine Urobilinogen Dipstick 0.2 mg/dL (0.2 mg/dL) Urine Leukocyte Esterase Negative (NEG) Urine RBC Occ /HPF (0-2) Urine WBC Occ /HPF (0-4) Urine Squamous Epithelial Cells Few /LPF Urine Bacteria 0 /HPF (0-FEW) Urine Mucus Mod /LPF White Blood Count 11.9 x10^3/uL (4.0-11.0) H Red Blood Count 4.74 x10^6/uL (4.30-5.70) Hemoglobin 14.5 g/dL (13.0-17.5) Hematocrit 43.7 % (39.0-53.0) Mean Corpuscular Volume 92 fL (79-100) Mean Corpuscular Hemoglobin 31 pg (25-35) Mean Corpuscular Hemoglobin Concent 33 g/dL (31-37) Red Cell Distribution Width 14.7 % (11.5-14.5) H Platelet Count 273 x10^3/uL (140-400) Neutrophils (%) (Auto) 54 % (31-73) Lymphocytes (%) (Auto) 34 % (24-48) Monocytes (%) (Auto) 9 % (0-9) Eosinophils (%) (Auto) 2 % (0-3) Basophils (%) (Auto) 1 % (0-3) Neutrophils # (Auto) 6.5 x10^3/uL (1.8-7.7) Lymphocytes # (Auto) 4.1 x10^3/uL (1.0-4.8) Monocytes # (Auto) 1.0 x10^3/uL (0.0-1.1) Eosinophils # (Auto) 0.3 x10^3/uL (0.0-0.7) Basophils # (Auto) 0.1 x10^3/uL (0.0-0.2) Laboratory Tests 04/16/21 04:55 Vital Signs: Vital Signs Date Time Temp Pulse Resp B/P (MAP) Pulse Ox O2 Delivery O2 Flow Rate FiO2 04/16/21 04:35 45 21 131/86 (101) 100 Room Air (JANETTE BUNDY DO) EKG: EKG: @0438 Sinus bradycardia at 48bpm, NO ST elevation, QRS 82ms, QT/QTc 430/384ms (JANTETE BUNDY DO) Radiology/Procedures: Radiology/Procedures: [] (JANETTE BUNDY DO) Radiology/Procedures: [facility] [address] [place] [address] IMAGING REPORT Signed PATIENT: FOULK,HANG M ACCOUNT: [id number] : 1980 LOCATION: ER AGE: 40 SEX: M EXAM STATUS: REG ER ORD. PHYSICIAN: HENRI GURROLA MD REASON: RUQ pain PROCEDURE: ABDOMEN LTD Examination: Ultrasound abdomen limited HISTORY: History of right upper quadrant pain COMPARISON: None available FINDINGS: The visualized pancreas grossly appears unremarkable. The visualized aorta, IVC within normal limits of dimension.Mild increased opacity identified in the liver likely hepatic steatosis. The gallbladder is mildly distended with small amount of sludge in the gallbladder with probable tiny stones. The right kidney measures 11.9 cm in length. IMPRESSION: 1. Hydropic gallbladder with small amount of sludge/tiny stones within the gallbladder. 2. Probable mild hepatic steatosis. Electronically signed by: Aris Dixon MD (04/16/2021 7:08 AM) [id number] DICTATED and SIGNED BY: ARIS DIXON MD DATE: 04/16/21 [id number] 0 (HENRI GURROLA MD) Course & Med Decision Making: Course & Med Decision Making Pertinent Labs and Imaging studies reviewed. (See chart for details) Patient presents with 2-day history of upper abdominal discomfort with associ ated nausea and vomiting. Voluntary guarding noted on exam with significant tenderness to right upper quadrant. Concern for possible gallbladder issue. EKG bradycardiac but stable. Patient appears asymptomatic despite HR down to 40s on monitoring. Labs obtained and posted to chart. Lipase and LFTs within normal limits. CT abdomen/pelvis pending. 0600-signout given to Dr. Gurrola for further evaluation and final disposition. Discussed current findings and plan with patient and family, who acknowledge understanding and agreement. (JANETTE BUNDY DO) Course & Med Decision Making Patient sleeping without discomfort. Patient states he has no pain after ul trasound. Discussed diet and return precautions for gallbladder sludge. (HENRI GURROLA MD) Dragon Disclaimer: Dragon Disclaimer: This electronic medical record was generated, in whole or in part, using a voice recognition dictation system. (JANETTE BUNDY DO) Departure Departure Impression: Primary Impression: Abdominal pain Qualified Codes: R10.31 - Right lower quadrant pain Additional Impression: Cholelithiasis Disposition: HOME / SELF CARE / HOMELESS Condition: STABLE Referrals: NO PCP (PCP) [facility] Patient Instructions: Cholelithiasis, [id number] Scripts Dicyclomine Hcl (DICYCLOMINE HCL) 20 Mg Tablet 1 TAB PO TID PRN for ABDOMINAL PAIN for 10 Days, #30 TAB 1 Refill Prov: HENRI GURROLA MD 04/16/21 JANETTE BUNDY DO Apr 16, 2021 05:16 HENRI GURROLA MD Apr 16, 2021 07:43
[2021-04-16 05:24] LABS: CALCIUM 9.1 mg/dL (8.5-10.1); CREATININE 1.1 mg/dL (0.7-1.3); GFR 73.8; POTASSIUM 3.8 mmol/L (3.5-5.1)
[2021-04-16 05:30] LABS: ALBUMIN 3.4 g/dL (3.4-5.0); ALBUMIN/GLOBULIN RATIO 1.1 (1.0-1.7); TOTAL BILIRUBIN 0.1 mg/dL (0.2-1.0); TOTAL PROTEIN 6.6 g/dL (6.4-8.2)
[2021-04-16 05:38] LABS: CREATINE KINASE 73 U/L (39-308)
--- NOTE | 2021-04-16 06:25 | RAD ---
CT ABDOMEN+PELVIS W History: Reason: Upper abdominal pain, N/V, Technique: After the administration of intravenous contrast, CT imaging was performed of the abdomen and pelvis. Multiplanar images are reviewed. Exposure: One or more of the following individualized dose reduction techniques were utilized for thi s examination: 1. Automated exposure control 2. Adjustment of the mA and/or kV according to patient size 3. Use of iterative reconstruction technique. Comparison: July 30, 2020 Findings: Lower chest: No consolidation or pleural effusion. Mild distal esophageal wall thickening. Abdomen and pelvis: Mild periportal edema. The spleen, adrenal glands, and pancreas are unremarkable. Mild distention of the gallbladder. Gallbladder wall calcification noted. No biliary ductal dilatati on. Patent portal vein. No hydronephrosis. No renal calculi. Decompressed urinary bladder. Normal appendix. No evidence of bowel obstruction. Oral contrast opacifies to the level of the mid sm all bowel. Fluid filled distal small bowel. No transition point identified. No pathologic lymphadenop athy. No ascites. Bones: No pathologic osseous lesions. Impression: 1. Distal esophageal wall thickening. Correlate for esophagitis. 2. Mild distention of the gallbladder. Ultrasound can further evaluate if indicated. 3. Mild periportal edema, may indicate nonspecific inflammation. Electronically signed by: Will Borja DO (04/16/2021 6:22 AM) [facility]
[2021-04-16] MEDS ORDERED: LIDO:MAALOX 1:1 20 ML SINGLE DOSE. SWSW ONE (07:00)
--- NOTE | 2021-04-16 07:10 | RAD ---
Examination: Ultrasound abdomen limited HISTORY: History of right upper quadrant pain COMPARISON: None available FINDINGS: The visualized pancreas grossly appears unremarkable. The visualized aorta, IVC within normal limits of dimension.Mild increased opacity identified in the liver likely hepatic steatosis. The gallbladder is mildly distended with small amount of sludge in the gallbladder with probable tiny stones. The right kidney measures 11.9 cm in length. IMPRESSION: 1. Hydropic gallbladder with small amount of sludge/tiny stones within the gallbladder. 2. Probable mild hepatic steatosis. Electronically signed by: Aris Dixon MD (04/16/2021 7:08 AM) [id number]
[2021-04-16 07:29] VITALS: BP 106/68
[2021-04-16] MEDS ORDERED: DICY20TA3 PO (07:43)
== END 2021-04-16 07:58 | disposition home or self-care (01) ==
LOC: ER 04:11
DX: K80.20 Calculus of gallbladder without cholecystitis without obstruction (principal); R10.31 Right lower quadrant pain; R11.2 Nausea with vomiting, unspecified; Z87.442 Personal history of urinary calculi; Z88.5 Allergy status to narcotic agent; Z88.6 Allergy status to analgesic agent
CPT/HCPCS: 36415; 74177; 76705; 80053; 81001; 82553; 83605; 83690; 84484; 85025; 93005; 96361; 96374; 96375; 99285; J2405; J3010; J3490; J7030; Q9966; Q9967

== ENCOUNTER 2021-11-09 05:32 | Emergency (ER) | payer SELFPAY ==
[~2021-11-09] VITALS: Ht 180.3 cm; Wt 68.0 kg
[~2021-11-09 05:32] MED LIST changes: +DICY20TA PO
--- NOTE | 2021-11-09 06:14 | PHYS DOC ---
Past Medical History Past Medical History: Kidney Stone, Other Additional Past Medical Histor: SPONTANEOUS PNEUMO X3 LEFT SIDE FROM BLEBS,L ELBOW DISLOCATION, L WRIST FX Past Surgical History: Other Additional Past Surgical Histo: PNEUMO, ART BYPASS OF L ELBOW Smoking Status: Former Smoker Alcohol Use: None Drug Use: Methamphetamine General Adult EDM: Chief Complaint: FLANK PAIN HPI: HPI: Patient is a 41 year old female who presents with right-sided flank pain starting at 4 5 AM this morning. Sharp. Comes in waves. Wraps around the front and goes towards his right lower quadrant. Denies dysuria, fever, chills. Denies nausea/vomiting. He has been sweating and feeling hot which she feels is due to pain. States that he has had kidney stones, but they have all been on the left side previously. States he is not sure if this feels similar to previous kidney stones, thinks it may feel worse. Denies needing surgical/procedural intervention for kidney stones in the past. Review of Systems: Review of Systems: Constitutional: Denies fever or chills. [] Eyes: Denies change in visual acuity. [] HENT: Denies nasal congestion or sore throat. [] Respiratory: Denies cough or shortness of breath. [] Cardiovascular: Denies chest pain or edema. [] GI: Denies abdominal pain, nausea, vomiting, bloody stools or diarrhea. [] : Reports right flank pain. Denies dysuria. [] Musculoskeletal: Denies back pain or joint pain. [] Integument: Denies rash. [] Neurologic: Denies headache, focal weakness or sensory changes. [] Endocrine: Denies polyuria or polydipsia. [] Lymphatic: Denies swollen glands. [] Psychiatric: Denies depression or anxiety. [] Heart Score: C/O Chest Pain: No Current Medications: Current Medications Medications (Trade) Dose Ordered Sig/Ria Start Time Stop Time Status Last Admin Dose Admin Ketorolac Tromethamine (Toradol 15mg Vial) 15 mg 1X ONCE 11/09/21 06:15 11/09/21 06:16 UNV Allergies: Allergies: Allergies Coded Allergies Type Severity Reaction Last Updated Verified hydrocodone Allergy Intermediate 07/19/20 Yes tramadol Allergy Intermediate 07/19/20 Yes Physical Exam: PE: Constitutional: Standing up, leaning over bed. Holding back. Appears to be in significant pain. HENT: atraumatic, multiple facial/neck tattoos. Eyes: conjunctiva normal, no discharge. [] Neck: Normal range of motion, no tenderness, supple, no stridor. [] Cardiovascular:Heart rate regular rhythm, no murmur [] Lungs & Thorax: Normal work of breathing. Abdomen: soft, non-tender Skin: Warm, diaphoretic. Back: + R CVA ttp Neurologic: Alert and oriented X 3, normal motor function, normal sensory function, no focal deficits noted. [] Current Patient Data: Vital Signs: Vital Signs Date Time Temp Pulse Resp B/P (MAP) Pulse Ox O2 Delivery O2 Flow Rate FiO2 11/09/21 05:37 97.4 60 24 137/87 (104) 100 Room Air 97.4 EKG: EKG: [] Radiology/Procedures: Radiology/Procedures: [] Impression: [facility] [address] [place], [place] [id number] IMAGING REPORT Signed PATIENT: HANG DUBOSE ACCOUNT: [id number] : 1980 LOCATION: ER AGE: 41 SEX: M EXAM STATUS: REG ER ORD. PHYSICIAN: CRISTEL RESTREPO MD REASON: R flank pain PROCEDURE: CT ABDOMEN PELVIS WO CONTRAST EXAMINATION: CT ABDOMEN+PELVIS WO CLINICAL HISTORY: Right flank pain. TECHNIQUE: Imaging of the abdomen and pelvis was performed without intravenous contrast using standard technique, scanning from just above the dome of the diaphragm to the symphysis pubis. Unenhanced imaging is limited for the evaluation of some intra-abdominal and pelvic pathology. CT Dose Reduction Employed: One or more of the following individualized dose reduction techniques were utilized for this examination: 1. Automated exposure control 2. Adjustment of the mA and/or kV according to patient size 3. Use of iterative reconstruction technique. COMPARISON: 04/16/2021, 07/25/2020 FINDINGS: Small old calcified granuloma in the right middle lobe. Minimal bibasilar opacities favors subsegmental atelectasis. Mild hepatomegaly, similar to prior study. Minimally distended gallbladder. Pancreas, spleen, and adrenal glands unremarkable. 3 mm calculus in the distal ureter just proximal to the ureterovesical junction with mild to moderate hydroureteronephrosis and renal edema. Tiny nonobstructive calculus lower pole left kidney. 1.6 cm hyperdense lesion along the anterior upper pole of the right kidney with mean attenuation 70 HU, incompletely evaluated but suggestive of a hemorrhagic cyst. A similar sized but less dense lesion is noted at this level on comparison exam from 07/25/2020, compatible with interval hemorrhage. Nondiagnostic evaluation of the nondistended urinary bladder. Coarse prostatic calcifications. Nondilated bowel. Distal esophageal wall thickening, nonspecific but similar to prior study. Nondistended stomach suboptimally evaluated. Mild arterial atherosclerotic calcification without aneurysm. No evidence of acute osseous abnormality. IMPRESSION: 3 mm calculus in the distal right ureter with [id number] hydroureterone phrosis. 1.6 cm hyperdense lesion in the right kidney as described, compatible with a hemorrhagic cyst. Mild hepatomegaly. Additional nonacute findings as described. Electronically signed by: Yasmani Vera DO (11/09/2021 7:32 AM) [id number] DICTATED and SIGNED BY: YASMANI VERA DO DATE: 11/09/21 [id number] 0 Course & Med Decision Making: Course & Med Decision Making Pertinent Labs and Imaging studies reviewed. (See chart for details) Patient 41-year-old male presents with right flank pain abruptly starting this morning. Afebrile, stable vital signs on arrival. Appears acute comfortable. Does have a history of kidney stones, and this seems likely to be the case once again. However, patient states that he is not sure if it feels similar to previous kidney stones, and is indicated he was much more severe. Therefore will obtain CT imaging to confirm diagnosis, as well as UA, basic labs to evaluate for complications such as HOLLY or septic stone. 0614 CT shows a 3 mm stone on the right with mild/moderate hydronephrosis. No HOLLY or evidence of septic stone on labs/UA. Patient's pain is better controlled after ketorolac and morphine. We will discharge with urology follow-up, short course of tamsulosin, Zofran, oxycodone for symptomatic management in addition to Tylenol/ibuprofen. Return precautions discussed. 0834 Kamla Disclaimer: Kamla Disclaimer: This electronic medical record was generated, in whole or in part, using a voice recognition dictation system. Departure Departure Impression: Primary Impression: Ureterolithiasis Disposition: HOME / SELF CARE / HOMELESS Condition: STABLE Referrals: NO PCP (PCP) Additional Instructions: You have a 3 mm right sided stone in your ureter. This will hopefully pass on its own. Sometimes stones need surgical intervention to pass. So, please call one of the follow practice locations for urology follow up. [facility] / [place], [place] [address] [place], [place] [id number] [place] [address] [place] [address] [place] [address] [facility], [address] [place] [id number] You may need a PCP referral depending on insurance and particular urology pr actice requirements. The focus for now is on pain control. For pain tylenol and ibuprofen are best used on a schedule. Please alternate between the two. -Tylenol 1000 mg every 6 hours (do not exceed 4000 mg in one day). -Ibuprofen 600 mg every 6 hours. Take with food. Do not take for more than 1 week. For pain not managed by the above you can take: Oxycodone 1 tab every 4-6 hours. For nausea: Zofran 4 mg every 6 hours, let it dissolve under your tongue. To help the stone pass there is a medication called tamsulosin. Please take 1 tab once daily. Since you do not have a PCP, please call the number for the [facility] at [phone]. Scripts Tamsulosin Hcl (FLOMAX) 0.4 Mg Cap.er.24h 1 CAP PO DAILY, #30 CAP 11 Refills Prov: CRISTEL RESTREPO MD 11/09/21 Ondansetron Hcl (ZOFRAN) 4 Mg Tablet 1 TAB PO PRN Q4-6HRS PRN for NAUSEA/VOMITING, #20 TAB Prov: CRISTEL RESTREPO MD 11/09/21 Oxycodone Hcl (OXYCODONE HCL) 5 Mg Capsule 5 MG PO PRN Q4-6HRS PRN for PAIN, #12 TAB 0 Refills Prov: CRISTEL RESTREPO MD 11/09/21 CRISTEL RESTREPO MD Nov 09, 2021 06:14
[2021-11-09 06:16] LABS: BASO % 0 % (0-3); EOS # 0.1 x10^3/uL (0.0-0.7); EOS % 1 % (0-3); HEMATOCRIT 43.4 % (39.0-53.0); HEMOGLOBIN 14.4 g/dL (13.0-17.5); LYMPH # 4.3 x10^3/uL (1.0-4.8); LYMPH % 36 % (24-48); MEAN CORPUSCULAR HEMOGLOBIN 30 pg (25-35); MEAN CORPUSCULAR HGB CONC 33 g/dL (31-37); MEAN CORPUSCULAR VOLUME 90 fL (79-100); MONO # 1.4 x10^3/uL (0.0-1.1); MONO % 11 % (0-9); NEUT # 6.3 x10^3/uL (1.8-7.7); NEUT % 52 % (31-73); PLATELET COUNT 219 x10^3/uL (140-400); RED BLOOD COUNT 4.83 x10^6/uL (4.30-5.70); RED CELL DISTRIBUTION WIDTH 13.6 % (11.5-14.5); WHITE BLOOD COUNT 12.2 x10^3/uL (4.0-11.0)
[2021-11-09 06:27] LABS: CALCIUM 8.5 mg/dL (8.5-10.1); GFR 81.9; POTASSIUM 3.5 mmol/L (3.5-5.1)
[2021-11-09] MEDS ORDERED: KETOROLAC 30 MG/ML VIAL. IVP ONE (06:30)
[2021-11-09 06:33] LABS: ALBUMIN 3.6 g/dL (3.4-5.0); ALBUMIN/GLOBULIN RATIO 1.1 (1.0-1.7); TOTAL BILIRUBIN 0.4 mg/dL (0.2-1.0)
[2021-11-09 07:27] LABS: BILIRUBIN,URINE SMALL (NEG); CLARITY,URINE CLEAR; COLOR,URINE AMBER; NITRITE,URINE NEGATIVE (NEG); PH,URINE 5.5 (<5.0-8.0); PROTEIN,URINE 30 mg/dL (NEG-TRACE); UROBILINOGEN,URINE 0.2 mg/dL (0.2 mg/dL)
--- NOTE | 2021-11-09 07:34 | RAD ---
EXAMINATION: CT ABDOMEN+PELVIS WO CLINICAL HISTORY: Right flank pain. TECHNIQUE: Imaging of the abdomen and pelvis was performed without intravenous contrast using standar d technique, scanning from just above the dome of the diaphragm to the symphysis pubis. Unenhanced i maging is limited for the evaluation of some intra-abdominal and pelvic pathology. CT Dose Reduction Employed: One or more of the following individualized dose reduction techniques wer e utilized for this examination: 1. Automated exposure control 2. Adjustment of the mA and/or kV ac cording to patient size 3. Use of iterative reconstruction technique. COMPARISON: 04/16/2021, 07/25/2020 FINDINGS: Small old calcified granuloma in the right middle lobe. Minimal bibasilar opacities favors subsegment al atelectasis. Mild hepatomegaly, similar to prior study. Minimally distended gallbladder. Pancreas, spleen, and adr enal glands unremarkable. 3 mm calculus in the distal ureter just proximal to the ureterovesical junction with mild to moderate hydroureteronephrosis and renal edema. Tiny nonobstructive calculus lower pole left kidney. 1.6 cm h yperdense lesion along the anterior upper pole of the right kidney with mean attenuation 70 HU, incom pletely evaluated but suggestive of a hemorrhagic cyst. A similar sized but less dense lesion is note d at this level on comparison exam from 07/25/2020, compatible with interval hemorrhage. Nondiagnostic evaluation of the nondistended urinary bladder. Coarse prostatic calcifications. Nondilated bowel. Distal esophageal wall thickening, nonspecific but similar to prior study. Nondiste nded stomach suboptimally evaluated. Mild arterial atherosclerotic calcification without aneurysm. No evidence of acute osseous abnormality. IMPRESSION: 3 mm calculus in the distal right ureter with [id number] hydroureteronephrosis. 1.6 cm hyperdense lesion in the right kidney as described, compatible with a hemorrhagic cyst. Mild hepatomegaly. Additional nonacute findings as described. Electronically signed by: Yasmani Chou DO (11/09/2021 7:32 AM) [id number]
[2021-11-09 07:37] LABS: BACTERIA,URINE FEW /HPF (0-FEW); RBC,URINE 0 /HPF (0-2); WBC,URINE RARE /HPF (0-4)
[2021-11-09] MEDS ORDERED: MORPHINE SULFATE 4 MG/ML INJ. IVP ONE ×2 (07:45→08:00)
[2021-11-09] MEDS ORDERED: TAMSULOSIN 0.4 MG CAP.ER.24H. PO ONE (08:15)
[2021-11-09] MEDS ORDERED: ONDANSETRON PF 4 MG/2 ML VIAL. IVP ONE (08:30)
[2021-11-09] MEDS ORDERED: TAMS0.4C97 PO (08:39)
[2021-11-09] MEDS ORDERED: OXYC5CAP PO (08:39)
[2021-11-09] MEDS ORDERED: ONDA4TAB7 PO (08:39)
[2021-11-09 08:55] VITALS: BP 101/63
== END 2021-11-09 08:55 | disposition home or self-care (01) ==
LOC: ER 05:32
DX: N13.2 Hydronephrosis with renal and ureteral calculous obstruction (principal); Z20.822 Contact with and (suspected) exposure to COVID-19; R16.0 Hepatomegaly, not elsewhere classified; Z87.891 Personal history of nicotine dependence
CPT/HCPCS: 36415; 74176; 80053; 81001; 85025; 87426; 96374; 96375; 99284; J1885; J2270; U0003; U0005

== ENCOUNTER 2021-11-11 12:42 | Emergency (ER) | payer BC ==
[~2021-11-11 12:42] MED LIST changes: +OXYC5CAP PO
--- NOTE | 2021-11-12 16:01 | NUR ---
IP: Attempted to contact pt concerning covid results, Daughter answered and hung up. Attempted to call again and no answer. No voicemail box.
== END 2021-11-11 15:21 | disposition left against medical advice (07) ==
LOC: ER 12:42
DX: R10.9 Unspecified abdominal pain (principal); Z53.21 Procedure and treatment not carried out due to patient leaving prior to being seen by health care provider